=== PATIENT | female | born 1975 | race Asian ===

== ENCOUNTER 2017-08-20 12:08 | Outpatient (CLI) | payer OTHER | END 2017-08-20 12:09 | disposition home or self-care (01) | LOC: DI 12:08 | DX: I51.7 Cardiomegaly (principal); G47.33 Obstructive sleep apnea (adult) (pediatric) | CPT/HCPCS: 93306 ==

== ENCOUNTER 2019-02-05 14:52 | Outpatient (CLI) | payer OTHER | END 2019-02-05 14:53 | disposition home or self-care (01) | LOC: SC 14:52 | PROVIDERS: ATTEND Internal Medicine Pulmonary Disease | DX: G47.33 Obstructive sleep apnea (adult) (pediatric) (principal) | CPT/HCPCS: 99203; 99212 ==

== ENCOUNTER 2019-03-09 19:39 | Outpatient (CLI) | payer OTHER | END 2019-03-09 19:40 | disposition home or self-care (01) | LOC: SC 19:39 | PROVIDERS: ATTEND Internal Medicine Pulmonary Disease | DX: G47.33 Obstructive sleep apnea (adult) (pediatric) (principal) | CPT/HCPCS: 95810 ==

== ENCOUNTER 2019-03-27 10:10 | Outpatient (CLI) | payer OTHER | END 2019-03-27 10:11 | disposition home or self-care (01) | LOC: SC 10:10 | PROVIDERS: ATTEND Nurse Practitioner Family | DX: G47.33 Obstructive sleep apnea (adult) (pediatric) (principal) | CPT/HCPCS: 99212; 99215 ==

== ENCOUNTER 2019-05-20 16:23 | Outpatient (CLI) | payer OTHER ==
[2019-05-20 17:39] VITALS: BP 130/80
--- NOTE | 2019-05-20 17:39 | SLEEP CARE CONSULTATION ---
Information from patient questionnaire entered by Shaylee Villalta. I have reviewed and concur with the information entered by Shaylee Villalta. This document represents the service I personally performed and the decisions made by me, Margo Hernandez, RN, MSN, MANAGER SPEECH. History of Present Illness Previous diagnosis: Very Severe, Obstructive Sleep Apnea-Hypopnea Syndrome AHI: 98.8 Reason for CPAP/BiPAP follow up: other (2 month follow up pressure change) Equipment type: BiPAP Equipment obtained from: [employer] Mask style: Full face Mask brand: Respironics Backup mask available: Yes Last cushion change: 2 months. Prior sleep studies: Yes Year and Where: 2018 [facility] additional information: The BiPAP pressure was reduced due to discomfort and aerophagia. New pressure is now comfortable and aerophagia resolved. Throat dryness only occasional now with adjustment of heated hose and humidity. A mask refitting was ordered but she is not yet due. The current mask is more comfortable with adjustment but wonders needs a larger cushion. CPAP Compliance Data - Data Reviewed with Patient Average duration of nightly device use: 7h 28m Compliance rate %: 100 Current pressure setting (cmH2O): Subjective Patient concerns: reports: mask discomfort, air blowing in eyes (most nights), dry mouth, nose, throat. denies: aerophagia (cushion seems too small and tightening to keep mask leaks low ), mask leak noise, condensation in mask/hose, nasal congestion (mild dry throat), epistaxis Observed to snore while using device: No Current pressure setting perceived as: comfortable On therapy, patient: reports: sleeping better, awakening more refreshed, being more awake and alert during the day, more rested overall. denies: drowsiness while driving Initial [place] Sleepiness Scale score: 23 Current [place] Sleepiness Scale score: 11 Allergies and Home Medications Known drug allergies: No Allergy and home medication list: Medication Name (generic/name brand) Strength & Dosage Amlodipine Besylate 10mg tab one daily Hydrochlorothiazide 12.5mg tab one daily Allopurinol 300mg tab one daily Xanax Tab as needed, as directed Micardis 80mg tab one daily Aspirin 81mg tab one daily Turmeric One teaspoonful daily Review of Systems Review of systems same as previous: No (No longer requires insulin since weight loss AIC 5.2) Physical Exam Blood Pressure: 130/80 Cuff size: long Heart Rate: 90 O2 Saturation: 98 Height: 5 ft 2.75 in Weight (kg): 189 lb Body Mass Index: 33.7 BMI Classification: Class 1 Impression and Plan 1. Obstructive Sleep Apnea-Hypopnea Syndrome, very severe, with good treatment compliance and very slight elevation of residual AHI. On BiAP therapy, the patient has better sleep quality and is more rested overall. Since she is planning on losing about 15 more pounds by early next year. Thus I will not adjust her BiPAP any higher for mild residual AHI. Current pressure reduction has resolved her aerophagia. Thus she is advised to contact me if any discomfort in pressure or return aerophagia with weight loss. For mask concerns, I measured her with the [employer] View template and she would be better fitted with a medium cushion in place of the small. Thus I ordered this and advised patient to contact [facility]. The new mask size will hopefully reduce waking to mask leaks into her eyes and oral dryness. She can also adjust the humidity further. I reviewed the supply replacement list and rationale for changing. Thus her desire for a new style will need to be 6 months from last headgear received. Patient's apnea severity and rationale for treatment to reduce apnea, improve sleep quality and reduce cardiovascular and cerebrovascular events was reviewed. I also reviewed the benefit of consistent device use of BiPAP for hypertension, diabetes, gastric reflux, migraines. * Continue BiPAP pressure at 18/13 cmH2O * Change mask cushion to medium. * Update supplies * Adjust humidity as needed * Notify me if snoring with mask or feeling that the pressure is too much or too little * Continue to lose weight * Return for follow up in 6 months, or sooner if concerns arise I spent 100% of this 30 minute visit face to face with the patient with greater than 50% of this was spent time counseling the patient and coordination of care.
== END 2019-05-20 16:24 | disposition home or self-care (01) ==
LOC: SC 16:23
PROVIDERS: ATTEND Nurse Practitioner Family
DX: G47.33 Obstructive sleep apnea (adult) (pediatric) (principal)
CPT/HCPCS: 99212; 99214

== ENCOUNTER 2024-04-16 09:29 | Outpatient (CLI) | payer OTHER ==
--- NOTE | 2024-04-17 08:58 | Ultrasound Report ---
LIMITED ULTRASOUND OF RIGHT BREAST: 04/16/2024 CLINICAL: Patient returns today to evaluate a focal asymmetry in the right breast. Comparison is made to exams dated: 04/16/2024 mammogram - [facility], 03/13/2024 [facility] mogram, 01/02/2019 mammogram, 06/14/2016 mammogram, and 06/18/2015 mammogram - [facility] Color flow and real-time ultrasound of the right breast 12 o'clock region were performed. Bauer scale images of the real-time examination were reviewed. Confirmatory ultrasound demonstrates no sonographic abnormality at 12 o'clock, 7 cm from the nipple. IMPRESSION: NEGATIVE Superimposition of normal breast tissue with confirmatory negative ultrasound. No sonographic or mamm ographic evidence of malignancy. A 1 year screening mammogram is recommended. Findings and recommendations were conveyed to the patient during today's evaluation. This exam was interpreted at Station ID: [id number]. Electronically Signed By: Chaparrita Cody M.D., Ph.D. eb/:04/16/2024 16:07:17 Ultrasound BI-RADS: 1 Negative BI-RADS CATEGORY: (1) - 1 RECOMMENDATION: (ANNUAL) - Recommend routine annual screening mammography. [id number] 1 year screening LATERALITY: (B)
--- NOTE | 2024-04-17 08:58 | Mammography Report ---
UNILATERAL RIGHT DIGITAL DIAGNOSTIC MAMMOGRAM 3D/2D WITH SPOT COMPRESSION: 04/16/2024 CLINICAL: Patient returns today to evaluate a focal asymmetry in the right breast. Comparison is made to exams dated: 03/13/2024 mammogram, 01/02/2019 mammogram, 06/14/2016 mammogram, an d 06/18/2015 mammogram - [facility]. The right breast is heterogeneously dense, which may obscure small masses (category c / 51-75% glandu lar tissue). The finding seen on recent screening mammogram did not persist with additional imaging and likely rep resents superimposition of normal breast tissue. No significant masses, calcifications, or other findings are seen in the breast. IMPRESSION: INCOMPLETE: NEEDS ADDITIONAL IMAGING EVALUATION Probable superimposition of normal breast tissue. Recommend further evaluation with targeted breast u ltrasound, which will immediately follow this exam. Based on Tyrer-Cuzick model (a risk assessment model), the patient's lifetime risk is 25.2% and her 1 0 year risk is 5.9%. If a patient has an elevated risk, a more comprehensive evaluation should be con sidered and/or a referral to a genetic counselor. The [place] [employer], [employer] [place] [employer] di[employer], and NCCN Guidelines advise the consideration of Breast MRI as an adjunct to screening mammog amos in patients whose "Lifetime risk to develop breast cancer" is 20% or higher. This exam was interpreted at Station ID: [id number]. NOTE: For mammograms, a report in lay terms will be sent to the patient. Approximately 15% of breast malignancies will not be visualized mammographically. In the management of a palpable breast mass, a negative mammogram must not discourage biopsy of a clinically suspicious lesion. Electronically Signed By: Chaparrita Cody M.D., Ph.D. eb/:04/16/2024 16:06:18 ACR BI-RADS Category 0: Incomplete 3340F PARENCHYMAL PATTERN: (D) - The breast(s) demonstrate(s) heterogeneously dense fibroglandular parenchy ma. BI-RADS CATEGORY: (0) - 0 Ultrasound [id number] Immediate follow-up LATERALITY: (B)
== END 2024-04-16 09:30 | disposition home or self-care (01) ==
LOC: DI 09:29
PROVIDERS: ATTEND Nurse Practitioner Family
DX: R92.8 Other abnormal and inconclusive findings on diagnostic imaging of breast (principal); R92.331 Mammographic heterogeneous density, right breast

== ENCOUNTER 2024-05-08 10:51 | Outpatient (CLI) | payer OTHER ==
--- NOTE | 2024-05-08 12:18 | Sleep Patient Instructions ---
Sleep Center Visit Summary - Patient Visit Information Reason for Visit: Initial consultation - Patient Instructions Additional Instructions: You will be completing a sleep study, either an in-lab polysomnography (PSG) or home sleep study (HST). You will follow-up in the sleep care office after the sleep study is completed to hear the results and talk about therapy, if needed. You will be called by our office staff to schedule this appointment, but you may contact us with any questions. - Clinic Information Contact: [facility] [address] [place] [address] [email or web address] T: [phone]
--- NOTE | 2024-05-08 12:23 | SLEEP CARE CONSULTATION ---
Information from patient questionnaire entered by Merritt Velasquez. I have reviewed and concur with the information entered by Merritt Velasquez. This document represents the service I personally performed and the decisions made by me, Francesca Aguilar ARNP. History of Present Illness Service Date and Time: 05/08/2024 1051 Reason for Visit: New patient, Previously diagnosed sleep apnea, Re-establish care Accompanied by: Spouse (Froilan) Chief Complaint: reports: Unrefreshed sleep, Snoring, Excessive daytime sleepiness, Observed pauses in breathing, Fatigue, Frequent awakenings at night, Other (Broken machine, update supplies) Usual bedtime: 9:30 - 11 PM Time it takes to fall asleep: 1 + hour Snores at night: Yes Observed to quit breathing while asleep: Yes Sleeps alone due to snoring: No Number of times waking at night: 2 - 3 x Reasons for waking at night: reports: Choking, Pain, Bathroom. denies: Gasping for air Toss, Turn, or Twitch while sleeping: Yes Recalls having dreams: No Usually gets out of bed at: 8 AM Feels refreshed in the morning: No Morning headache: No Sleepy or fatigued during the day: Yes Ever fallen asleep while driving: Yes Takes day naps: Yes Dreams during day naps: No Prior sleep studies: Yes Year and Where: 2018 [facility] Additional HPI information: LORI PUENTE was previously diagnosed to have very severe, AHI 98.8, obstr uctive sleep apnea-hypopnea syndrome in sleep study in 2019 here at [facility] and comes in with spouse today to re-establish care for BIPAP therapy. - Parasomnia Symptoms Ever been unable to move upon waking from sleep: Yes Walks in sleep: No Talks in sleep: No Ever acted out dreams in sleep: No Ever felt weak in the knees when startled or emotional: No Bothered by creepy, crawly, restless sensations in legs: Yes Problems with memory or concentration: Yes CPAP Compliance Data - Data Reviewed with Patient Current pressure setting (cmH2O): Compliance data discussion: She has a [employer] Aircurve machine that stopped working about 2.5 years ago after it was dropped. Subjective Initial [place] Sleepiness Scale score: 23 (02/05/19) Current [place] Sleepiness Scale score: 22 (05/08/24) Past Medical History Past Medical History: reports: Hypertension, Diabetes (Type 2), Gout, Anxiety Social History The patient is not employed. Patient is and lives in [place]. Have you smoked in the past 12 months: No Alcohol use: No Caffeine use: Yes Caffeine amount and frequency: 2 times a week Family History Family history of sleep disordered breathing: No Allergies and Home Medications Known drug allergies: No Drug allergies reviewed: Yes Home medication list reviewed: Yes (as listed) Allergy and home medication list: Allergies No Known Drug Allergies Allergy (Verified 05/08/24 12:11) Home Medications Ergocalciferol See Rx Instructions .ROUTE .COMPLEX 05/08/24 [History] Hydrochlorothiazide See Rx Instructions .ROUTE .COMPLEX 05/08/24 [History] Lantus Solostar 10 unit SUBQ BID 05/08/24 [History] Telmisartan See Rx Instructions .ROUTE .COMPLEX 05/08/24 [History] Trulicity See Rx Instructions .ROUTE .COMPLEX 05/08/24 [History] Review of Systems Weight gain over past 5 years: 20 Weight loss over past 5 years: 72 Cardiovascular: reports: high blood pressure, have to sleep sitting up Respiratory: reports: shortness of breath Gastrointestinal: reports: heartburn, other (Bloating) Urinary: reports: frequency Neurological: reports: headaches, gait or balance problems Psychiatric: reports: anxiety Ear/Nose/Throat: reports: nasal congestion, dry mouth/throat, hoarseness. denies: tonsillectomy Endocrine: reports: sluggishness (/tired), too hot or cold Musculoskeletal: reports: joint pain (/stiffness), neck pain, back pain, muscle pain or cramping Immunologic: reports: sneezing (/runner nose), itching Physical Exam Vital signs obtained and entered by: Francesca Lynn NP Blood Pressure: 146/100 Cuff size: wrist (right) Heart Rate: 97 O2 Saturation: 98 Height: 5 ft 2.75 in Weight: 194 lb 9.6 oz Body Mass Index: 34.7 BMI Classification: Obese Neck circumference: 16 Mouth and throat: narrow oropharynx Soft palate: long Hard palate: normal Uvula: normal Uvula visualization: 25% Mallampati Class III Tongue: enlarged in size with teeth beckford on lateral edges Tonsils: 1+ Heart: regular rate and rhythm Lungs: clear bilaterally Impression and Plan 1. Obstructive Sleep Apnea-Hypopnea Syndrome, very severe. She has not been able to use her BiPAP set at 18/13 cmH2O because it broke 2-1/2 years ago. She did have improvement of her sleep and restfulness when able to use her BiPAP and would like to get reinstated on BiPAP therapy. We discussed that we will have to have another sleep study to requalify her for PAP therapy. She voiced understanding and agreement. Patient's apnea severity and rationale for treatment to reduce apnea, improve sleep quality and reduce cardiovascular and cerebrovascular events was reviewed. I also reviewed the benefit of consistent device use of CPAP for hypertension, diabetes, anxiety. 2. Obesity, unspecified. Currently patients BMI is 34.7. Obesity increases the risk of apnea, CPAP pressure requirements and overall health risks especially cardiovascular and diabetes. Thus patient is advised to lose weight. * Schedule polysomnography/HST to re-qualify for PAP therapy. * Avoid long distance driving or driving when feeling sleepy. * Avoid alcohol, sedative and muscle relaxant around bedtime. * Attempt to lose weight. * Review instructions provided by trained office staff on how to prepare for the sleep study. * Return for follow-up after sleep study completed. Counseling Topics: Weight loss health impact Plan: PSG/HST and follow up Visit Type: In Office Time Spent with Patient (minutes): 30 Provider Statement: I spent 100% of the Face to Face Visit with the patient with greater than 50% spent counseling the patient and coordination of care.
[2024-05-08 12:27] VITALS: BP 146/100; O2SAT 98
== END 2024-05-08 10:52 | disposition home or self-care (01) ==
LOC: SC 10:51
PROVIDERS: ATTEND Nurse Practitioner Family
DX: G47.33 Obstructive sleep apnea (adult) (pediatric) (principal); E66.9 Obesity, unspecified; Z68.34 Body mass index [BMI] 34.0-34.9, adult
CPT/HCPCS: 99203; 99212

== ENCOUNTER 2024-05-14 09:29 | Outpatient (CLI) | payer OTHER | END 2024-05-14 09:30 | disposition home or self-care (01) | LOC: SC 09:29 | PROVIDERS: ATTEND Nurse Practitioner Family | DX: G47.33 Obstructive sleep apnea (adult) (pediatric) (principal); R09.02 Hypoxemia; E11.9 Type 2 diabetes mellitus without complications; I10 Essential (primary) hypertension | CPT/HCPCS: 95806 ==

== ENCOUNTER 2024-05-29 09:41 | Outpatient (CLI) | payer OTHER ==
--- NOTE | 2024-05-29 10:13 | Sleep Patient Instructions ---
Sleep Center Visit Summary - Patient Visit Information Reason for Visit: Sleep study follow-up - Patient Instructions Additional Instructions: You are being re-started on BIPAP therapy with pressure setting at 18/13 cmH2O. You will need to call the sleep care office to set up your follow up once you have your BIPAP machine to check compliance and response to therapy at that time. You may call the office with any concerns about pressure feeling too low or too much for adjustment, if needed. You should contact DME supplier for any questions or concerns about mask or equipment. Please call office to schedule a follow up appointment in the sleep care office one month after obtaining new device. - Clinic Information Contact: [facility] [address] [place] [address] [email or web address] T: [phone]
--- NOTE | 2024-05-29 10:18 | SLEEP CARE CONSULTATION ---
Information from patient questionnaire entered by Merritt Velasquez. I have reviewed and concur with the information entered by Merritt Velasquez. This document represents the service I personally performed and the decisions made by , Francesca Aguilar ARNP. History of Present Illness Service Date and Time: 05/29/2024 0941 Accompanied by: Spouse (Froilan) Initial [place] Sleepiness Scale score: 23 (02/05/19) Current [place] Sleepiness Scale score: 22 (05/29/24) Additional HPI information: LORI PUENTE returns for follow up and results of the recently performed home sleep study. The sleep study done on 05/14/24 showed severe obstructive sleep apnea with an average AHI of 45.8 and tyler oxygen saturation of 58%. I explained the pathophysiology behind obstructive sleep apnea. We then spent quite a bit of time discussing different treatment options. For mild obstructive sleep apnea, surgery and oral appliance are alternatives to nasal CPAP therapy but in moderate or severe cases, nasal CPAP is the most effective and reliable treatment. I reviewed the impact of weight changes on sleep apnea and strongly recommended losing weight. After some discussion, the patient opted to go back on BiPAP therapy. She was previously on a BiPAP set at 18/13 cmH20. Patient counseled not drink alcohol less than 4 hours before bedtime as it can increase snoring and apnea. Patient was cautioned about risks of drowsy driving until sleepiness symptoms resolve. Patient denies drowsy driving. Sleep Study - Results Prior sleep studies: Yes Year and Where: 2018 [facility] Polysomnography/Home Sleep Study results: Physician Impression: The quality of the study is good. The length of the study is adequate (> 240 minutes). Please also see the tabulated and graphic data. 1. Obstructive Sleep Apnea-Hypopnea (ICD-10 G47.33), severe, with an AHI of 45.8/hr and tyler SaO2 of 58%. During the study, the patient had 328 apneas (328 obstructive, 0 central, 0 mixed) and 93 hypopneas. The longest episode lasted 112.5 seconds. The respiratory events occurred independently of sleep stage and body position (supine AHI was 53.6 and non-supine, 38.70). 2. Hypoxemia (ICD-10 R09.02), severe, with the lowest oxygen saturation of 58 % and 90.6 minutes with SaO2 under 90%. Baseline oxygen saturation was normal (Average oxygen saturation was 92%). Allergies and Home Medications Known drug allergies: No Drug allergies reviewed: Yes Home medication list reviewed: Yes (no changes) Allergy and home medication list: Allergies No Known Drug Allergies Allergy (Verified 05/08/24 12:11) Review of Systems Review of systems same as previous: Yes (no changes) Physical Exam Vital signs obtained and entered by: Francesca Lynn NP Blood Pressure: 152/99 (had large coffee prior to appt) Cuff size: long (right arm) Heart Rate: 102 O2 Saturation: 96 Height: 5 ft 2.75 in Weight: 192 lb 9.6 oz Body Mass Index: 34.4 BMI Classification: Obese Impression and Plan 1. Obstructive Sleep Apnea-Hypopnea Syndrome, severe, with lowest oxygen saturation of 58%. Obviously this is the cause of the patients symptoms of unrefreshed sleep, and excessive daytime sleepiness. Positive pressure therapy could benefit hypertension, diabetes and anxiety. As mentioned above, the patient will be re-started on BiPAP therapy with pressure set at 18/13 cmH2O which showed good control of apnea. A manual titration study will be completed if unable to find optimal treatment pressure with office adjustments. Compliance guidelines also reviewed. A copy of compliance guidelines will be given for reference at check out. 2. Hypoxemia, severe, with a tyler oxygen saturation of 58% and 90.6 minutes spent under 90%. The baseline oxygen saturation was normal with an average oxygen saturation of 92%. 3. Obesity, unspecified. Currently patients BMI is 34.4. Obesity increases the risk of apnea, BIPAP pressure requirements and overall health risks especially cardiovascular and diabetes. Thus patient is advised to lose weight. * Nasal BiPAP therapy, pressure at 18/13 cmH2O. * Attempt to lose weight. * Avoid alcohol consumption near bedtime. * Avoid supine sleep until using BIPAP. * The patient is again cautioned about driving until sleepiness completely resolves. * Return one month after BIPAP obtained. I will assess response to therapy and compliance at that time. Counseling Topics: Weight loss health impact Prescriptions: BiPAP Follow up with Sleep Care in: other (compliance follow up) Visit Type: In Office Time Spent with Patient (minutes): 22 Provider Statement: I spent 100% of the Face to Face Visit with the patient with greater than 50% spent counseling the patient and coordination of care.
[2024-05-29 10:24] VITALS: BP 152/99; O2SAT 96
== END 2024-05-29 09:42 | disposition home or self-care (01) ==
LOC: SC 09:41
PROVIDERS: ATTEND Nurse Practitioner Family
DX: G47.33 Obstructive sleep apnea (adult) (pediatric) (principal); R09.02 Hypoxemia; E66.9 Obesity, unspecified; Z68.34 Body mass index [BMI] 34.0-34.9, adult
CPT/HCPCS: 99212; 99213